=== PATIENT | male | born 1965 | race Caucasian/White ===

== ENCOUNTER 2023-10-23 08:10 | Day surgery (SDC) | payer BC, OTHER ==
[2023-10-22 13:18] LABS: BASOPHILS % (AUTO) 0.8 % (0-1); EOSINOPHILS # (AUTO) 0.2 X10'3 (0-0.9); EOSINOPHILS % (AUTO) 2.9 % (0-6); HEMATOCRIT 40.3 % (42.0-52.0); HEMOGLOBIN 14.1 g/dl (14.0-17.9); LYMPHOCYTES # (AUTO) 1.6 X10'3 (1.1-4.8); LYMPHOCYTES % (AUTO) 26.9 % (21-51); MEAN CORPUSCULAR HEMOGLOBIN 30.9 PG (27.0-31.0); MEAN CORPUSCULAR HGB CONC 35.1 g/dL (33.0-36.5); MEAN CORPUSCULAR VOLUME 88.2 FL (78-98); MEAN PLATELET VOLUME 7.5 FL (7.4-10.4); MONOCYTES # (AUTO) 0.4 X10'3 (0-0.9); MONOCYTES % (AUTO) 6.4 % (2-12); NEUTROPHILS # (AUTO) 3.9 X10'3 (1.8-7.7); PLATELET COUNT 167 X10'3 (140-440); RED BLOOD COUNT 4.57 X10'6 (4.70-6.10); RED CELL DISTRIBUTION WIDTH 14.4 % (11.5-14.5); WHITE BLOOD COUNT 6.1 X10'3 (4.5-11.0)
[2023-10-22 13:27] LABS: APTT 32 SECONDS (22-32); PROTHROMBIN TIME 11.2 SECONDS (9.0-12.0)
[2023-10-22 13:32] LABS: ALBUMIN 3.8 G/DL (3.4-5.0); ANION GAP 8 (8-16); BLOOD UREA NITROGEN 13 MG/DL (7-18); BUN/CREATININE RATIO 14.6 (10.0-20.0); CALCIUM 8.6 MG/DL (8.5-10.1); CHLORIDE 109 MMOL/L (99-107); CREATININE 0.89 MG/DL (0.60-1.10); GLUCOSE 83 MG/DL (70-104); POTASSIUM 3.9 MMOL/L (3.5-5.1); SODIUM 142 MMOL/L (135-145); TOTAL CARBON DIOXIDE 24.7 MMOL/L (24-32); eGFR 87 ML/MIN
[2023-10-23] VITALS (12 sets, daily range): BP systolic 100–153; BP diastolic 54–85; PULSE 62–72; RESP 14–16; TEMP 98.2; O2SAT 97–100
[~2023-10-23] VITALS: Ht 172.7 cm; Wt 79.6 kg
[~2023-10-23 08:10] MED LIST: COL100C PO; FLO0.4C PO; NO HOME MEDS; ONDA4TAB59 PO
[2023-10-23] MEDS ORDERED: FLO0.4C PO (08:36)
[2023-10-23] MEDS ORDERED: APIX5TAB3 PO (08:36)
[2023-10-23] MEDS ORDERED: SOTA80TA73 PO (08:36)
[2023-10-23] MEDS ORDERED: fentaNYL/PF 50MCG/1 ML 2ML syringe IV ONE (08:45)
[2023-10-23] MEDS ORDERED: MIDAZolam 1mg/ml 10ml vial IV ONE (08:45)
[2023-10-23 08:55] LABS: CHOL/HDL RATIO 5.3 (0.00-4.99); CHOLESTEROL 186 MG/DL (0-200); HDL CHOLESTEROL 35 MG/DL (35-60); LDL CHOLESTEROL 119 MG/DL (50-100); TRIGLYCERIDES 171 MG/DL (20-135)
[2023-10-23] MEDS: normal saline 1000ml 1,000 ML IV SCH (09:40)
[2023-10-23] MEDS: MIDAZolam 1mg/ml 10ml vial IV ONE (09:41)
[2023-10-23] MEDS: fentaNYL/PF 50MCG/1 ML 2ML syringe IV ONE (09:41)
== END 2023-10-23 10:45 | disposition home or self-care (01) ==
LOC: SSTAY O 08:10
PROVIDERS: ATTEND Student in an Organized Health Care Education/Training Program
DX: I48.91 Unspecified atrial fibrillation (principal); R00.1 Bradycardia, unspecified; E78.00 Pure hypercholesterolemia, unspecified; Z85.46 Personal history of malignant neoplasm of prostate; Z79.01 Long term (current) use of anticoagulants; Z79.899 Other long term (current) drug therapy
CPT/HCPCS: 36415; 80048; 80061; 85025; 85610; 85730; 92960; 93005; J2250; J3010; J7030